=== PATIENT | female | born 1955 | race Caucasian/White ===

== ENCOUNTER 2018-06-21 09:14 | Emergency (ER) | payer OTHER ==
[~2018-06-21] VITALS: Ht 154.9 cm; Wt 71.2 kg
[~2018-06-21 09:14] MED LIST: CEFTIN 250 MG250 MG PO; CLARITIN10 MG PO; EVISTA PO; FLOMAX0.4 MG PO; GENTAMICIN SU3 MG/ML OPHTHALMIC; HYDROCODONE-AP1 EAC6 PO; MULTI VITAMIN1 EACH PO; NAPROSYN500 MG PO; ONDANSETRON HCL4 M2 PO; PERCOCET 5-3251 EACH PO; TRICOR145 MG PO; TUMS PO; ZANTAC 150MG T150 MG PO; ZOLOFT50 MG PO; ZYRTEC10 M5 PO
[2018-06-21 09:29] LABS: URINE BILIRUBIN NEGATIVE (Negative); URINE BLOOD 3+ (Negative); URINE CLARITY CLEAR; URINE COLOR YELLOW; URINE GLUCOSE-RANDOM* NEGATIVE (Negative); URINE KETONES NEGATIVE (Negative); URINE LEUKOCYTES-REFLEX NEGATIVE (Negative); URINE NITRITE-REFLEX NEGATIVE (Negative); URINE PROTEIN (DIPSTICK) NEGATIVE (Negative); URINE SPECIFIC GRAVITY >= 1.030 (1.005-1.035); URINE UROBILINOGEN 0.2 E.U./dl (0.2-1.0)
[2018-06-21 09:34] LABS: BACTERIA-REFLEX None Seen /HPF (None Seen); CASTS None Seen /LPF (None Seen); SQUAMOUS 4-10 Moderate /LPF (0-3); URINE RBC 3-10 Few /HPF (0-2); URINE WBC-REFLEX None Seen /HPF (0-5)
[2018-06-21 09:35] LABS: CALCIUM OXALATE 0-3 Few /LPF (None Seen)
[2018-06-21 09:39] LABS: ABSOLUTE NEUTROPHILS 6.2 thou/uL (1.4-8.2); BASOPHILS 0.4 % (0.0-2.0); EOSINOPHILS 0.5 % (0.0-3.0); HEMATOCRIT 41.5 % (37.0-47.0); HEMOGLOBIN 14.3 gm/dL (12.0-15.0); LYMPHOCYTES 11.5 % (24.0-44.0); MCH 31.7 pg (26.0-34.0); MCHC 34.4 g/dL (28.0-37.0); MCV 92.2 fL (80.0-100.0); MONOCYTES 4.6 % (1.0-8.0); PLATELET COUNT 327 thou/uL (150-400); WBC 7.5 thou/uL (4.0-11.0)
[2018-06-21] MEDS ORDERED: ZOLOFT50 MG PO (09:42)
[2018-06-21 09:56] LABS: CALCIUM 10.1 mg/dL (8.5-10.1); POTASSIUM 3.6 mmol/L (3.5-5.1)
[2018-06-21 10:02] LABS: ALBUMIN 4.5 g/dL (3.4-5.0); TOTAL BILIRUBIN 0.4 mg/dL (<0.1-1.0); TOTAL PROTEIN 7.8 g/dL (6.4-8.2)
[2018-06-21] MEDS ORDERED: ZOFRAN ODT4 MG PO (12:29)
[2018-06-21] MEDS ORDERED: SENNA-DOCUSATE1 EAC1 PO (12:29)
[2018-06-21] MEDS ORDERED: FLOMAX0.4 MG PO (12:29)
[2018-06-21] MEDS ORDERED: NORCO 5-325 TA1 EACH PO (12:29)
[2018-06-21] MEDS ORDERED: IBUPROFEN 600600 M1 PO (12:29)
[2018-06-21 12:44] VITALS: BP 134/84
== END 2018-06-21 12:40 | disposition home or self-care (01) ==
LOC: ER 09:14
PROVIDERS: Emergency Medicine
DX: N13.2 Hydronephrosis with renal and ureteral calculous obstruction (principal); E78.00 Pure hypercholesterolemia, unspecified